=== PATIENT | male | born 1980 | race Caucasian/White ===

== ENCOUNTER 2021-11-05 23:37 | Emergency (ER) | payer MEDICARE, MEDICAID | END 2021-11-06 01:20 | disposition home or self-care (01) | LOC: JD.ED 23:37 | DX: K02.9 Dental caries, unspecified (principal); Z88.0 Allergy status to penicillin; Z88.5 Allergy status to narcotic agent; Z72.0 Tobacco use | CPT/HCPCS: 99282 ==

== ENCOUNTER 2022-06-03 13:56 | Emergency (ER) | payer MEDICARE, MEDICAID | END 2022-06-03 15:33 | disposition home or self-care (01) | LOC: JD.ED 13:56 | DX: K08.89 Other specified disorders of teeth and supporting structures (principal); F17.210 Nicotine dependence, cigarettes, uncomplicated; Z88.0 Allergy status to penicillin; Z88.8 Allergy status to other drugs, medicaments and biological substances; Z79.899 Other long term (current) drug therapy | CPT/HCPCS: 99282 ==

== ENCOUNTER 2024-12-02 09:36 | Observation (INO) | payer MEDICARE, MEDICAID ==
[2024-12-02 12:06] LABS: BASOPHILS ABSOLUTE AUTO 0.1 K/mm3 (0.0-0.2); BASOPHILS PERCENT AUTO 0.6 % (0.0-1.0); EOSINOPHILS ABSOLUTE AUTO 0.7 K/mm3 (0.0-0.4); EOSINOPHILS PERCENT AUTO 6.4 % (0.0-6.0); HEMATOCRIT 37.5 % (42.0-52.0); HEMOGLOBIN 12.5 gm/dl (14.0-18.0); IMMATURE GRAN ABSOLUTE AUTO 0.03 K/mm3 (0.00-0.05); IMMATURE GRAN PERCENT AUTO 0.3 % (0.0-0.4); LYMPHOCYTES ABSOLUTE AUTO 3.2 K/mm3 (1.0-4.8); MEAN CORPUSCULAR HGB CONC 33.3 g/dl (32.0-36.0); MEAN CORPUSCULAR VOLUME 93.1 fl (83.0-99.0); MEAN PLATELET VOLUME 8.9 fl (9.4-12.4); MONOCYTES ABSOLUTE AUTO 0.7 K/mm3 (0.0-0.8); MONOCYTES PERCENT AUTO 6.5 % (0.0-8.0); NEUTROPHILS ABSOLUTE AUTO 5.6 K/mm3 (1.8-7.7); NEUTROPHILS PERCENT AUTO 55.2 % (41.0-71.0); PLATELET COUNT,PLT 269 K/mm3 (150-400); RED BLOOD CELL COUNT 4.03 M/mm3 (4.52-5.90); WHITE BLOOD CELL COUNT,WBC 10.15 K/mm3 (3.9-11.3)
[2024-12-02] MEDS: Sodium Chloride 0.9% 1,000 ML IV STA (12:06)
[2024-12-02] MEDS: HYDROmorphone 0.5 MG/0.5 ML Syringe IVPUSH ONE ×2 (12:08→14:58)
[2024-12-02] MEDS: Ondansetron 4 MG/2 ML SDV IVPUSH ONE (12:09)
[2024-12-02 12:24] LABS: A/G RATIO 0.8 (1-2); ALBUMIN 3.2 g/dl (3.4-5.0); ANION GAP 12.6 (5-15); BILIRUBIN TOTAL 0.5 mg/dL (0.2-1.0); C-REACTIVE PROTEIN 4.37 mg/dL (<0.30); CALCIUM 9.1 mg/dL (8.5-10.1); EST CRCL DRUG DOSING (CG) 90.9 mL/min; POTASSIUM,K 4.6 mEq/L (3.5-5.1)
[2024-12-02] MEDS: Sodium Chloride 0.9% 10 ML Syringe FLUSH PRN (12:57)
[2024-12-02] MEDS: Iopamidol 612 MG/ML 100 ML Bottle IVPUSH ONE (12:58)
[2024-12-02] MEDS: Heparin Sodium 5,000 Units/ML Vial SUBCUT ONE (14:55)
[2024-12-02] MEDS: cefTRIAXone 1 GM Vial IVPUSH ONE (14:55)
[2024-12-02] MEDS: metroNIDAZOLE/Normal Saline 500 MG in Premix Bag 1 BAG IV ONE (14:59)
[2024-12-02] MEDS ORDERED: Sodium Chloride 0.9% 10 ML Syringe FLUSH PRN (15:15)
[2024-12-02] MEDS ORDERED: Midazolam 1 MG/ML 2 ML SDV ONE (15:23)
[2024-12-02] MEDS ORDERED: Ketamine 200 MG/20 ML MDV ONE (15:23)
[2024-12-02] MEDS ORDERED: fentaNYL 100 MCG/2 ML SDV ONE (15:23)
[2024-12-02] MEDS ORDERED: propofoL 500 MG/50 ML 50 ML ONE (15:23)
[2024-12-02] MEDS: Albuterol/Ipratropium 3.0-0.5 MG/3 ML Neb Soln NEB ONE (15:27)
[2024-12-02] MEDS: Lactated Ringers 1,000 ML IV SCH ×2 (16:02→18:50)
[2024-12-02] MEDS ORDERED: Sodium Chloride 0.9% 100 ML ONE (16:15)
[2024-12-02] MEDS ORDERED: dexmedeTOMIDine HCl 200 MCG/2 ML SDV ONE (16:15)
[2024-12-02] MEDS ORDERED: Lidocaine 2% 5 ML SDV ONE (16:15)
[2024-12-02] MEDS ORDERED: Rocuronium 50 MG/5 ML Vial ONE (16:15)
[2024-12-02] MEDS ORDERED: Glycopyrrolate 0.2 MG/ML 2 ML SDV ONE (16:15)
[2024-12-02] MEDS ORDERED: Sugammadex Sodium 200 MG/2 ML VIAL IV ONE (16:54)
[2024-12-02] MEDS ORDERED: Ondansetron 4 MG/2 ML SDV IVPUSH PRN (18:21)
[2024-12-02] MEDS: fentaNYL 100 MCG/2 ML SDV IVPUSH PRN (18:42)
[2024-12-02] MEDS: HYDROmorphone 0.5 MG/0.5 ML Syringe IVPUSH PRN (18:45)
[2024-12-02] MEDS: Sodium Chloride 0.9% 10 ML Syringe FLUSH SCH (20:04)
[2024-12-02] MEDS: metroNIDAZOLE/Normal Saline 500 MG in Premix Bag 1 BAG IV SCH (21:01)
[2024-12-02] MEDS: Heparin Sodium 5,000 Units/ML Vial SUBCUT SCH (21:01)
[2024-12-02] MEDS: Morphine 2 MG/ML SYRINGE IVPUSH PRN (21:18)
[2024-12-02] MEDS: Nicotine 14 MG/24 Hr Patch TRDERM SCH (21:18)
[2024-12-03] MEDS: Acetaminophen/oxyCODONE 325-5 MG Tab PO PRN (06:00)
[2024-12-03] MEDS: Pantoprazole 40 MG Vial IVPUSH SCH (08:17)
[2024-12-03] MEDS: Doxepin 10 MG Cap PO SCH (09:36)
[2024-12-03] MEDS: cefTRIAXone 1 GM Vial IVPUSH SCH (14:55)
[2024-12-03] MEDS ORDERED: cefTRIAXone 500 MG in Sodium Chloride 0.9% 50 ML IV SCH (15:00)
[2024-12-03] MEDS: Nicotine 14 MG/24 Hr Patch TRDERM SCH (21:40)
== END 2024-12-04 08:38 | disposition home or self-care (01) ==
LOC: JD.ED 09:36 → JD.SDS 14:13 → JD.MS 18:05
PROVIDERS: ADMIT Surgery; ATTEND Surgery
DX: K61.1 Rectal abscess (principal); I10 Essential (primary) hypertension; M47.819 Spondylosis without myelopathy or radiculopathy, site unspecified; F17.210 Nicotine dependence, cigarettes, uncomplicated; Z88.0 Allergy status to penicillin; Z88.8 Allergy status to other drugs, medicaments and biological substances; Z79.899 Other long term (current) drug therapy; Z87.19 Personal history of other diseases of the digestive system; Z98.890 Other specified postprocedural states
CPT/HCPCS: 00902; 36415; 74177; 74177-26; 80053; 83605; 85025; 86140; 87040; 87070; 87075; 87205; 94640; 96365; 96372; 96375; 96376; 99140; 99222; 99284-25; A9270-GY; J0696; J1596; J1644; J1836; J2003; J2250; J2270; J2405; J2470; J2704; J3010; J3490; J7030; J7120; Q9967